=== PATIENT | male | born 1960 | race Caucasian/White ===

== ENCOUNTER 2016-06-21 23:55 | Emergency (ER) | payer OTHER ==
[~2016-06-21 23:55] MED LIST: AMPI500 PO; ASAB PO; BUSPAR10 PO; FLOMAX4 PO; IMDUR30 PO; JANTOVEN5 MG PO; LOP50 PO; PRIN10 PO; T PO; WELLXL150 PO; ZOCOR40 PO
[2016-06-22 01:14] LABS: BASOPHILS 0.4 %; BASOPHILS ABSOLUTE 0.04 10/3/uL (0.0-0.16); EOSINOPHILS 1.6 %; EOSINOPHILS ABSOLUTE 0.17 10/3/uL (0.0-0.53); HEMATOCRIT 40.8 % (40.0-51.0); HEMOGLOBIN 14.1 g/dL (13.6-17.8); IMMATURE GRANULOCYTES 0.1 %; IMMATURE GRANULOCYTES ABSOLUTE 0.01 10/3/uL (0.0-0.11); LYMPHOCYTES 18.1 %; LYMPHOCYTES ABSOLUTE 1.94 10/3/uL (0.67-4.30); MEAN CORPUS HGB CONC 34.6 g/dL (32.0-36.0); MEAN CORPUSCULAR VOLUME 92.5 fL (80-100); MEAN PLATELET VOLUME 9.2 fL (9.2-13.0); MONOCYTES 5.5 %; MONOCYTES ABSOLUTE 0.59 10/3/uL (0.21-1.20); NEUTROPHILS 74.3 %; NEUTROPHILS ABSOLUTE 7.97 10/3/uL (2.02-8.40); PLATELET COUNT 139 10/3/uL (150-400); RBC DISTRIBUTION WIDTH 13.6 % (12.0-16.0); RED CELL COUNT 4.41 10/6/uL (4.7-6.1); WHITE BLOOD CELLS 10.7 10/3/uL (4.5-10.5)
[2016-06-22 01:18] LABS: MANUAL DIFF NO %
[2016-06-22 01:32] LABS: A/G RATIO 1.3 (0.7-1.9); ALBUMIN 3.4 G/DL (3.5-5.0); ALKALINE PHOSPHATASE 59 U/L (45-117); CALCIUM, SERUM 8.3 MG/DL (8.5-10.4); CHLORIDE, SERUM 109 MMOL/L (96-112); CO2 (CARBON DIOXIDE) 29 MMOL/L (24-34); CREATININE 1.37 MG/DL (0.70-1.30); GFR AFRICAN AMERICAN 67 ML/MIN (>=60); GFR NON AFRICAN AMERICAN 58 ML/MIN (>=60); GLOBULIN 2.6 G/DL (2.5-4.1); GLUCOSE, SERUM 106 MG/DL (60-99); SGOT(AST) 20 U/L (5-40); SGPT(ALT) 38 U/L (5-65); SODIUM, SERUM 143 MMOL/L (135-148); TOTAL BILIRUBIN 0.6 MG/DL (0-1.2)
[2016-06-22 01:33] LABS: BUN (BLOOD UREA NITROGEN) 17 MG/DL (6-23); POTASSIUM, SERUM 3.6 MMOL/L (3.5-5.3)
[2016-09-27] MEDS ORDERED: COUMADIN7.5 MG PO (01:41)
[2016-09-27] MEDS ORDERED: COUMADIN10 MG PO (01:42)
[2016-09-27] MEDS ORDERED: T PO (01:43)
[2016-09-27] MEDS ORDERED: ASAB PO (01:44)
[2016-09-27] MEDS ORDERED: WELLSR150 PO (01:44)
[2016-09-27] MEDS ORDERED: BUSPAR10 PO (01:45)
[2016-09-27] MEDS ORDERED: IMDUR30 PO (01:46)
[2016-09-27] MEDS ORDERED: LOP25 PO (01:47)
[2016-09-27] MEDS ORDERED: PRIN10 PO (01:47)
[2016-09-27] MEDS ORDERED: ZOCOR40 PO (01:48)
[2016-09-28] MEDS ORDERED: AUG500 PO (13:02)
[2016-10-02] MEDS ORDERED: ASAB PO (09:46)
[2016-10-02] MEDS ORDERED: COUMADIN10 MG PO ×2 (09:48→09:49)
== END 2016-06-22 05:25 | disposition home or self-care (01) ==
LOC: ER 23:55
PROVIDERS: Emergency Medicine
DX: N32.89 Other specified disorders of bladder (principal); F32.9 Major depressive disorder, single episode, unspecified; F41.9 Anxiety disorder, unspecified; F17.200 Nicotine dependence, unspecified, uncomplicated; Z86.73 Personal history of transient ischemic attack (TIA), and cerebral infarction without residual deficits; Z91.041 Radiographic dye allergy status; Z79.82 Long term (current) use of aspirin; Z79.01 Long term (current) use of anticoagulants; Z79.899 Other long term (current) drug therapy
CPT/HCPCS: 80053; 85025; 99283

== ENCOUNTER 2016-06-22 15:46 | Emergency (ER) | payer OTHER ==
[2016-09-27] MEDS ORDERED: COUMADIN7.5 MG PO (01:41)
[2016-09-27] MEDS ORDERED: COUMADIN10 MG PO (01:42)
[2016-09-27] MEDS ORDERED: T PO (01:43)
[2016-09-27] MEDS ORDERED: WELLSR150 PO (01:44)
[2016-09-27] MEDS ORDERED: ASAB PO (01:44)
[2016-09-27] MEDS ORDERED: BUSPAR10 PO (01:45)
[2016-09-27] MEDS ORDERED: IMDUR30 PO (01:46)
[2016-09-27] MEDS ORDERED: PRIN10 PO (01:47)
[2016-09-27] MEDS ORDERED: LOP25 PO (01:47)
[2016-09-27] MEDS ORDERED: ZOCOR40 PO (01:48)
[2016-09-28] MEDS ORDERED: AUG500 PO (13:02)
[2016-10-02] MEDS ORDERED: ASAB PO (09:46)
[2016-10-02] MEDS ORDERED: COUMADIN10 MG PO ×2 (09:48→09:49)
== END 2016-06-22 15:49 | disposition home or self-care (01) ==
LOC: ER 15:46
DX: T83.091A Other mechanical complication of indwelling urethral catheter, initial encounter (principal); R33.8 Other retention of urine; E78.00 Pure hypercholesterolemia, unspecified; Z91.041 Radiographic dye allergy status; Z88.8 Allergy status to other drugs, medicaments and biological substances; Z79.82 Long term (current) use of aspirin; Z79.01 Long term (current) use of anticoagulants; Z79.899 Other long term (current) drug therapy; Z95.5 Presence of coronary angioplasty implant and graft
CPT/HCPCS: 99283; A9270-GY

== ENCOUNTER 2016-06-25 07:35 | Emergency (ER) | payer OTHER ==
[2016-06-25 07:19] LABS: BASOPHILS 0.4 %; BASOPHILS ABSOLUTE 0.04 10/3/uL (0.0-0.16); EOSINOPHILS 3.1 %; ER CBC TAT 0 Hrs 05 Mins; HEMATOCRIT 39.3 % (40.0-51.0); HEMOGLOBIN 13.6 g/dL (13.6-17.8); IMMATURE GRANULOCYTES 0.3 %; IMMATURE GRANULOCYTES ABSOLUTE 0.03 10/3/uL (0.0-0.11); LYMPHOCYTES 19.9 %; LYMPHOCYTES ABSOLUTE 1.91 10/3/uL (0.67-4.30); MANUAL DIFF NO %; MEAN CORPUS HGB CONC 34.6 g/dL (32.0-36.0); MEAN CORPUSCULAR HEMOGLOB 31.9 pg (26.0-34.0); MEAN CORPUSCULAR VOLUME 92.3 fL (80-100); MEAN PLATELET VOLUME 9.7 fL (9.2-13.0); MONOCYTES 5.8 %; MONOCYTES ABSOLUTE 0.56 10/3/uL (0.21-1.20); NEUTROPHILS 70.5 %; NEUTROPHILS ABSOLUTE 6.77 10/3/uL (2.02-8.40); PLATELET COUNT 145 10/3/uL (150-400); RBC DISTRIBUTION WIDTH 13.6 % (12.0-16.0); RED CELL COUNT 4.26 10/6/uL (4.7-6.1); WHITE BLOOD CELLS 9.6 10/3/uL (4.5-10.5)
[2016-06-25 07:27] LABS: ASCORBIC ACID (UR NOT ORDER) NEG (NEG); BILIRUBIN, URINE NEGATIVE (NEG); ER URINALYSIS TAT 0 Hrs 13 Mins; KETONE, URINE NEGATIVE (NEG); LEUKOCYTE ESTERASE(NOT OR NEG (NEG); NITRITE (URINE) NEG (NEG); WBC (NOT ORDERED) (RFLEX) < 1 (0-5)
[2016-06-25 07:34] LABS: CALCIUM, SERUM 8.9 MG/DL (8.5-10.4); CHLORIDE, SERUM 111 MMOL/L (96-112); CO2 (CARBON DIOXIDE) 26 MMOL/L (24-34); CREATININE 1.34 MG/DL (0.70-1.30); GFR AFRICAN AMERICAN 69 ML/MIN (>=60); GFR NON AFRICAN AMERICAN 60 ML/MIN (>=60); GLUCOSE, SERUM 114 MG/DL (60-99); POTASSIUM, SERUM 4.2 MMOL/L (3.5-5.3); SODIUM, SERUM 142 MMOL/L (135-148)
[2016-06-25 07:35] LABS: BUN (BLOOD UREA NITROGEN) 23 MG/DL (6-23)
[2016-09-27] MEDS ORDERED: COUMADIN7.5 MG PO (01:41)
[2016-09-27] MEDS ORDERED: COUMADIN10 MG PO (01:42)
[2016-09-27] MEDS ORDERED: T PO (01:43)
[2016-09-27] MEDS ORDERED: ASAB PO (01:44)
[2016-09-27] MEDS ORDERED: WELLSR150 PO (01:44)
[2016-09-27] MEDS ORDERED: BUSPAR10 PO (01:45)
[2016-09-27] MEDS ORDERED: IMDUR30 PO (01:46)
[2016-09-27] MEDS ORDERED: LOP25 PO (01:47)
[2016-09-27] MEDS ORDERED: PRIN10 PO (01:47)
[2016-09-27] MEDS ORDERED: ZOCOR40 PO (01:48)
[2016-09-28] MEDS ORDERED: AUG500 PO (13:02)
[2016-10-02] MEDS ORDERED: ASAB PO (09:46)
[2016-10-02] MEDS ORDERED: COUMADIN10 MG PO ×2 (09:48→09:49)
== END 2016-06-25 09:05 | disposition home or self-care (01) ==
LOC: ER 07:35
PROVIDERS: Nurse Practitioner Family
DX: T83.098A Other mechanical complication of other urinary catheter, initial encounter (principal); F41.9 Anxiety disorder, unspecified; F32.9 Major depressive disorder, single episode, unspecified; F17.200 Nicotine dependence, unspecified, uncomplicated; Z86.73 Personal history of transient ischemic attack (TIA), and cerebral infarction without residual deficits; Z91.041 Radiographic dye allergy status; Z88.8 Allergy status to other drugs, medicaments and biological substances; Z79.01 Long term (current) use of anticoagulants; Z79.82 Long term (current) use of aspirin; Z79.899 Other long term (current) drug therapy
CPT/HCPCS: 80048; 81001; 85025; 99283